=== PATIENT | female | born 1995 | race American Indian/Alaskan Native ===

== ENCOUNTER 2020-02-27 10:32 | Outpatient (CLI) | payer MEDICAID ==
[2020-02-27 11:25] VITALS: BP 119/70
== END 2020-02-27 13:05 | disposition home or self-care (01) ==
LOC: TRG 10:32 → APU 10:34 → TRG 13:05
PROVIDERS: ATTEND Obstetrics & Gynecology
DX: O62.4 Hypertonic, incoordinate, and prolonged uterine contractions (principal); Z3A.40 40 weeks gestation of pregnancy
CPT/HCPCS: 59025

== ENCOUNTER 2020-02-27 17:26 | Inpatient (IN) | payer MEDICAID ==
[2020-02-27] MEDS ORDERED: LIDOCAINE (2%) 20 MG/1 ML VIAL 20 ML MDV INFILTRATI ONE ×2 (17:32→18:17)
[2020-02-27] MEDS ORDERED: OXYTOCIN 10 UNIT/1 ML INJ ONE (17:33)
[2020-02-27] MEDS ORDERED: miSOPROStol 200 MCG TAB ONE (17:38)
[2020-02-27] MEDS ORDERED: miSOPROStol 200 MCG TAB PR ONE (18:10)
[2020-02-27] MEDS ORDERED: OXYTOCIN DRIP 30,000 MILLIUNITS/500 ML BAG IV ONE (18:11)
--- NOTE | 2020-02-27 18:15 | History and Physical Report ---
History of Present Illness Date of examination: 02/27/20 Date of admission: 02/27/20 17:29 Chief complaint: contractions History of present illness: 24-year-old G1, P0 at 40+3 weeks presents in active labor with advanced cervical dilatation. The patient presented to labor and delivery triage completely dilated. records are not available for review the patient has a known history of GBS. The patient did not receive antibiotic protection. Past History Past Medical History: no pertinent history Past Surgical History: other (Knee surgery) [employer] History: chlamydia Social history: single - Obstetrical History Expected Date of Delivery: 02/24/20 Actual Gestation: 40 Week(s) 3 Day(s) : 1 Para: 0 Hx # Term Pregnancies: 0 Number of Pregnancies: 0 Spontaneous Abortions: 0 Induced : 0 Number of Living Children: 0 Medications and Allergies Allergies Allergy/AdvReac Type Severity Reaction Status Date / Time No Known Allergies Allergy Verified 02/27/20 17:35 Home Medications Medication Instructions Recorded Confirmed Last Taken Type Vitamin 1 tab PO DAILY 02/27/20 02/27/20 02/27/20 08:00 History Review of Systems All systems: negative Genitourinary: pelvic pain, contractions - Vital Signs Vital signs: Vital Signs Temp Pulse Resp Pulse Ox 98.2 F 83 16 100 02/27/20 17:49 02/27/20 17:49 02/27/20 17:49 02/27/20 17:49 Temp Pulse Resp BP Pulse Ox 98.2 F 87 16 133/73 100 02/27/20 17:49 02/27/20 18:05 02/27/20 17:49 02/27/20 18:05 02/27/20 17:49 - Physical Exam Breasts: Positive: deferred Cardiovascular: Regular rate Lungs: Positive: Clear to auscultation Abdomen: Positive: normal appearance - Obstetrical Cervical Dilatation: 10 Results All other labs normal. Assessment and Plan - Patient Problems (1) Active labor at term Current Visit: Yes Status: Acute Plan to address problem: Admit to labor delivery (2) Group beta Strep positive Current Visit: Yes Status: Acute
[2020-02-27] MEDS ORDERED: ONDANSETRON 4 MG/2 ML INJ IV PRN ×2 (18:17→18:21)
[2020-02-27] MEDS ORDERED: BUTORPHANOL 2 MG/1 ML INJ IV PRN ×2 (18:17)
[2020-02-27] MEDS ORDERED: MINERAL OIL 30 ML ORAL LIQD PO PRN (18:17)
[2020-02-27] MEDS ORDERED: TERBUTALINE 1 MG/1 ML INJ SUB-Q PRN (18:17)
[2020-02-27] MEDS ORDERED: ePHEDrine SULFATE 50 MG/1 ML INJ IV PRN (18:17)
[2020-02-27] MEDS ORDERED: ACETAMINOPHEN 325 MG TAB PO PRN (18:17)
--- NOTE | 2020-02-27 18:17 | Procedure Note ---
OB Delivery Note - Delivery Date of Delivery: 02/27/20 Surgeon: ARAVIND CHEN Estimated blood loss: 100cc - Vaginal Delivery presentation: vertex Delivery position: OA Intrapartum events: precipitous labor- <3hr Route of delivery: Delivery placenta: spontaneous Delivery cord: 3 umbilical vessels Episiotomy: none Delivery laceration: none Anesthesia: none Delivery comments: The patient had a precipitous delivery of a liveborn male with Apgars of 8 and 9 weight 7 pounds 13 ounces. The placenta delivered spontaneously intact with a three-vessel cord. No lacerations were noted. - Infant A at 1 minute: 8 at 5 minutes: 9 Infant Gender: Male (Weight 7 pounds 13 ounces)
[2020-02-27] MEDS ORDERED: oxyCODONE /ACETAMINOPHEN 5-325MG TAB PO PRN (18:21)
[2020-02-27] MEDS ORDERED: diphenhydrAMINE 25 MG CAP PO PRN (18:21)
[2020-02-27] MEDS ORDERED: PROMETHAZINE 25 MG TAB PO PRN (18:21)
[2020-02-27] MEDS ORDERED: PROMETHAZINE 25 MG RECT SUPP PR PRN (18:21)
[2020-02-27] MEDS ORDERED: LANOLIN/ZINC/DIMETHICONE (LANSINOH) 7 GM TP PRN (18:21)
[2020-02-27] MEDS ORDERED: MAGNESIUM HYDROXIDE (MOM) ORAL LIQD UDC PO PRN (18:21)
[2020-02-27] MEDS ORDERED: LACTATED RINGERS 1,000 ML IV SCH (18:30)
[2020-02-27] MEDS ORDERED: OXYTOCIN DRIP 30 UNITS/500 ML BAG IV SCH ×2 (19:00)
[2020-02-27 20:04] LABS: Hematocrit 34.4 % (30.3-42.9); Hemoglobin 11.7 gm/dl (10.1-14.3); Mean Corpuscular HGB Conc 34 % (30-34); Mean Corpuscular Volume 88 fl (79-97); Platelet Count 218 K/mm3 (140-440); Red Cell Distribution Width 14.2 % (13.2-15.2)
[2020-02-27 21:01] LABS: Total Cells Counted 100
[2020-02-27 21:02] LABS: Anisocytosis Few
[2020-02-27] MEDS: IBUPROFEN 600 MG TAB PO SCH (23:22)
[2020-02-27] MEDS: WITCH HAZEL/ GLYCERIN PAD TP PRN (23:23)
[2020-02-28] MEDS: IBUPROFEN 600 MG TAB PO SCH ×3 (05:00→23:59)
--- NOTE | 2020-02-28 08:09 | Progress Note ---
Assessment and Plan A: PPD1 s/p at term. GBS+, not adequately treated due to precipitous delivery. P: Routine care, with anticipated discharge tomorrow at 48hrs . Subjective - Subjective Date of service: 02/28/20 Principal diagnosis: S/P at Term Interval history: Patient is feeling well and without complaints. Lochia decreasing and minimal pain. Patient reports: appetite normal, voiding normally, pain well controlled, ambulating normally [place]: doing well Objective - Vital Signs Latest vital signs: Vital Signs Temp Pulse Resp BP BP Pulse Ox 02/28/20 04:21 98.7 F 74 18 106/68 02/28/20 00:15 98.0 F 104 H 18 120/67 99 02/27/20 21:10 98.6 F 89 18 105/57 97 02/27/20 20:05 96 H 116/57 02/27/20 19:50 85 118/67 02/27/20 19:35 83 117/76 02/27/20 19:20 85 125/83 02/27/20 19:05 90 121/88 02/27/20 18:35 83 138/70 02/27/20 18:20 81 127/69 02/27/20 18:05 87 133/73 02/27/20 17:50 83 131/75 02/27/20 17:49 98.2 F 83 16 100 Intake and Output 02/27/20 02/28/20 02/28/20 23:59 07:59 15:59 Intake Total 500 Output Total 1600 800 Balance -1600 -300 Intake: Oral 200 Intake, Free Water 300 Output: Urine 1600 800 Void 1600 800 Other: Total, Intake Amount 200 Total, Output Amount 900 800 # Voids Void 1 1 Weight 95.254 kg - Exam Uterus: Present: firm, fundal height at umbilicus - Labs Labs: Abnormal lab results 02/27/20 Range/Units 18:45 WBC 29.7 H (4.5-11.0) K/mm3 Seg Neuts % (Manual) 88.0 H (40.0-70.0) % Lymphocytes % (Manual) 6.0 L (13.4-35.0) % Seg Neutrophils # Man 26.1 H (1.8-7.7) K/mm3 Monocytes # (Manual) 1.8 H (0.0-0.8) K/mm3
--- NOTE | 2020-02-28 08:38 | Discharge Summary ---
Providers - Providers Date of Admission: 02/27/20 17:29 Date of discharge: 02/29/20 Attending physician: ARAVIND CHEN Primary care physician: ARAVIND CHEN Hospitalization Reason for admission: active labor Delivery: Episiotomy: none Laceration: none complications: none Discharge diagnosis: IUP at term delivered [place] baby: male Condition at discharge: Good Disposition: DC-01 TO HOME OR SELFCARE Plan - Provider Discharge Summary Activity: no sex for 6 weeks, no heavy lifting 4 weeks, no strenuous exercise Diet: routine Instructions: routine Additional instructions: [] Smoking cessation referral if applicable(refer to patient education folder for contact #) [] Refer to [facility] Book[facility] Call your doctor immediately for: * Fever > 100.5 * Heavy vaginal bleeding ( >1 pad per hour) * Severe persistent headache * Shortness of breath * Reddened, hot, painful area to leg or breast * Drainage or odor from incision. * Keep incision clean and dry at all times and follow doctor's instructions regarding bathing/showering - Follow up plan Follow up: TED KLINE CNM [Advanced Practice Nurse] - 03/26/20
[2020-02-28 10:41] LABS: Hematocrit 32.2 % (30.3-42.9)
[2020-02-28] MEDS: WITCH HAZEL/ GLYCERIN PAD TP PRN (23:59)
[2020-02-29] MEDS: IBUPROFEN 600 MG TAB PO SCH ×2 (06:26→13:10)
[2020-02-29 15:44] VITALS: BP 114/77
[2020-02-29] MEDS: WITCH HAZEL/ GLYCERIN PAD TP PRN (17:53)
== END 2020-02-29 16:40 | disposition home or self-care (01) | DRG 775 ==
LOC: TRG 17:26 → APU 17:27 → TRG 17:28 → LD 17:29 → OB 21:15
PROVIDERS: ADMIT Obstetrics & Gynecology; ATTEND Obstetrics & Gynecology
PROC: 10E0XZZ Delivery of Products of Conception, External Approach (ICD-10-PCS; principal; 2020-02-27)
DX: O62.3 Precipitate labor (principal); Z20.822 Contact with and (suspected) exposure to COVID-19; Z3A.40 40 weeks gestation of pregnancy; Z37.0 Single live birth; Z79.899 Other long term (current) drug therapy; O99.824 Streptococcus B carrier state complicating childbirth
CPT/HCPCS: 36415; 85007; 85014; 85018; 85025; 85027; 86850; 86900; 86901; G0378; J2590; U0003